=== PATIENT | male | born 1990 | race Caucasian/White ===

== ENCOUNTER 2021-12-06 19:54 | Emergency (ER) | payer OTHER, SELFPAY ==
--- NOTE | ~2021-12-06 | XR_ITS ---
XR forearm LT 2V DATE: 12/06/2021 20:27 INDICATION: TECHNIQUE: 2 views COMPARISON: None FINDINGS: There is a comminuted fracture of the proximal radial shaft. There is almost complete ante rior displacement No dislocation at the elbow or wrist. IMPRESSION: Comminuted fracture of the proximal radial shaft Reviewed, dictated and finalized at location A.
[2021-12-06 19:56] VITALS: BP 123/77; PULSE 104; RESP 18; TEMP 36.9; O2SAT 98
--- NOTE | 2021-12-06 20:11 | ED.UPPEXIN ---
HPI - Extremity Injury (Upper) General Chief Complaint: Extremity Injury, Upper Stated Complaint: fall with left arm injury Time Seen by Provider: 12/06/21 19:58 History of Present Illness HPI narrative: 31-year-old male presents emergency room secondary injury to his left forearm. States he was playing kickball and he was running to first base when he tripped. He tried to catch himself on outstretched left arm. States he heard and felt a pop to the upper third of his left forearm. Been having swelling and pain in that area ever since. Did not hit his head and had no loss of consciousness. Denies any neck, chest, back, or lower extremity pain. This happened just prior to presentation to emergency room. Had a sling that he put the arm in an ice to her prior to arrival. Related Data Home Medications Medication Instructions Recorded Confirmed No Home Medications 12/06/21 Allergies Allergy/AdvReac Type Severity Reaction Status Date / Time avocado Allergy Unknown Diarrhea Verified 12/06/21 20:24 Review of Systems Review of Systems: CONSTITUTIONAL: Denies fever, chills, or sweats. EYES: Denies visual changes, redness, or discharge. ENT: Denies rhinorrhea, congestion, sore throat, or otalgia. CARDIOVASCULAR: Denies chest pain, palpitations, or edema. RESPIRATORY: Denies cough or dyspnea. GASTROINTESTINAL: Denies abdominal pain, nausea, vomiting, or diarrhea. GENITOURINARY: Denies dysuria or hematuria. SKIN: Denies rash or itching. MUSCULOSKELETAL: Pain to the left forearm. No pain to the left shoulder. No pain to the lower extremity. NEUROLOGIC: Denies headache, numbness, or weakness. PSYCHIATRIC: Denies anxiety or depression. [facility] Past Medical History Medical History No pertinent past medical history Family History Family History Mother Patient's mother is in good health Father Patient's father is in good health Sibling Patient's sister is in good health Patient's brother is in good health Social History Social History Smoking status: Current some day smoker Tobacco type: e-cigarettes/vaping Alcohol intake: current Exam Narrative: APPEARANCE: Well appearing, no pain or distress, well-nourished. Head normocephalic and atraumatic. EYES: PERRLA/EOMI, conjunctivae very clear. NOSE: Normal with no drainage EARS:TMS clear Radha Christine, with good light reflex. THROAT: Pharynx clear, no exudate. NECK: Supple. No adenopathy, no masses. RESPIRATORY: Airway patent, respirations nonlabored. Clear to auscultation bilaterally, no rales, rhonchi, wheezing. CARDIOVASCULAR: Regular rate and rhythm without murmurs, rubs, or gallops. ABDOMINAL: Soft, nontender, nondistended, no hepatosplenomegaly Musculoskeletal: Swelling and tenderness noted to the proximal third of the left forearm. No pain to the left elbow or wrist. Able to move all of his digits with full range of motion. Sensation is intact to all of his fingers. No tenderness to the left shoulder. Has a small abrasion to the left knee but no bony tenderness. NEURO: Alert. Cranial nerves II through XII intact. Normal gait. Good coordination. Nonfocal examination. SKIN:: Warm, dry. Normal Color PSYCHIATRIC: Normal affect/mood, normal interaction Course Course Emergency Course: Patient has a comminuted displaced fracture to the proximal aspect of the left radius. I sent pictures of this to our orthopedic surgeon on-call Dr. Blair who recommended this be splinted and transferred to [place] to one of the trauma orthopedic surgeons. His concern is that this is still close to the neurovascular components that this needs specialized care. Discussed this with the patient and his they prefer to be transferred to [facility]. Put out a phone call to the transfer center at [phone] and waiti
[2021-12-06] MEDS: HYDROcodone/acetaminophen (*CRX) 5-325 MG TABLET 1 TAB PO (20:23)
[2021-12-06] MEDS: KETOROLAC (*BKC) 60 MG/2 ML VIAL IM (20:23)
--- NOTE | 2021-12-06 21:02 | PC.NURSE ---
PT REFUSES EMS TRANSPORT TO [facility] ED. WILL DRIVE HIM.
[2021-12-06 21:22] VITALS: BP 140/83; PULSE 99; RESP 18; O2SAT 96
== END 2021-12-06 21:25 | disposition short-term general hospital (02) ==
PROVIDERS: Emergency Provider Emergency Medicine
DX: S52.352A Displaced comminuted fracture of shaft of radius, left arm, initial encounter for closed fracture (principal); F17.290 Nicotine dependence, other tobacco product, uncomplicated; W01.0XXA Fall on same level from slipping, tripping and stumbling without subsequent striking against object, initial encounter; Y93.6A Activity, physical games generally associated with school recess, summer camp and children
CPT/HCPCS: 29125; 73090; 96372; 99284; A4565; A9270; J1885

== ENCOUNTER 2022-06-17 16:16 | Emergency (ER) | payer OTHER, SELFPAY ==
[2022-06-17 16:27] VITALS: BP 122/72; PULSE 113; RESP 16; TEMP 38.9; O2SAT 99
--- NOTE | 2022-06-17 17:24 | ED.URI ---
HPI - URI/Sore Throat General Chief Complaint: Upper Respiratory Infection Stated Complaint: sore throat Time Seen by Provider: 06/17/22 17:24 History of Present Illness HPI Narrative: 32-year-old female presented for complaint of sore throat and fatigue, onset today. Endorses fever. He has not taken anything for symptoms. Denies sick contacts. Denies shortness of breath, sinus congestion, cough, nausea, vomiting, diarrhea. Related Data Allergies Allergy/AdvReac Type Severity Reaction Status Date / Time avocado Allergy Unknown Diarrhea Verified 06/17/22 17:20 Review of Systems Review of Systems: ROS per HPI [facility] Past Medical History Medical History No pertinent past medical history Family History Family History Mother Patient's mother is in good health Father Patient's father is in good health Sibling Patient's sister is in good health Patient's brother is in good health Social History Social History Smoking status: Current some day smoker Tobacco type: e-cigarettes/vaping Alcohol intake: current Exam Narrative: GENERAL: Ill-appearing, no acute distress. EYES: conjunctivae clear ENT: Mucous membranes moist. TMs pearly claudio with normal light reflex bilaterally; no tragal tenderness. Oropharynx erythematous without exudate. No drooling, no hoarseness, no trismus, uvula midline. No tripod positioning, hot potato voice, or soft palate swelling. NECK: Supple. No lymphadenopathy CHEST: Clear to auscultation, breath sounds equal. HEART: Regular rate and rhythm. No murmur heard. SKIN: Warm, dry, no rash. NEURO: Alert and oriented x3. Course Course Emergency Course: Patient is aware of diagnosis, understands and agrees to treatment plan. Anticipatory guidance given. Patient agrees to follow-up as directed and is aware of reasons to seek care at the emergency department. Portions of this record may have been created with voice recognition software Level of Care: Express Care Visit Vital Signs Vital signs: Vital Signs Temperature 102.0 F H 06/17/22 16:27 Pulse Rate 113 H 06/17/22 16:27 Respiratory Rate 16 06/17/22 16:27 Blood Pressure 122/72 06/17/22 16:27 Pulse Oximetry 99 06/17/22 16:27 Oxygen Delivery Room Air 06/17/22 16:27 Temperature 102 F H 06/17/22 17:37 Pulse Rate 113 H 06/17/22 16:27 Respiratory Rate 16 06/17/22 16:27 Blood Pressure 122/72 06/17/22 16:27 Pulse Oximetry 99 06/17/22 16:27 Oxygen Delivery Room Air 06/17/22 16:27 MDM - URI/Sore Throat MDM Narrative Medical decision making narrative: strep result reviewed with pt. Advise supportive treatments. Patient is appropriate for outpatient treatment and follow-up. Differential Diagnosis Differential diagnosis: Likely upper respiratory infection, viral infection and pharyngitis Discharge Plan Discharge Clinical Impression: Strep pharyngitis Patient Disposition: Home, Self-Care Condition: Stable Instructions: Antibiotic Form, Strep Throat (ED) Additional Instructions: - Take the antibiotic as directed. Fever and sore throat typically resolve within one to three days. Most patients can return to work after 12 to 24 hours of antibiotic therapy, provided you are fever free and otherwise well. -Eat and drink things that are easy to swallow, like soft foods, cool liquids, tea with honey, or popsicles . -Salt water gargles and/or may use topical anesthetic ( Chloraseptic spray) or lozenges to relieve dryness or throat pain -Alternate Tylenol and ibuprofen as needed for pain and fever as directed. -Frequent hand washing or hand computer instructor is one of the best ways to prevent spread of infection. Throw away the toothbrush after 24hours of antibiotic. -Follow up with primary care provider in 2-3 days if
[2022-06-17 17:37] VITALS: TEMP 38.8
[2022-06-17] MEDS: ACETAMINOPHEN 500 MG TABLET 1000 MG PO (17:37)
[2022-06-17 18:12] VITALS: TEMP 38.3
== END 2022-06-17 18:12 | disposition home or self-care (01) ==
PROVIDERS: Emergency Provider Nurse Practitioner Family
DX: J02.0 Streptococcal pharyngitis (principal); F17.290 Nicotine dependence, other tobacco product, uncomplicated
CPT/HCPCS: 87880; 99213; A9270; G0463

== ENCOUNTER 2025-02-21 00:58 | Day surgery (SDC) | payer BC, SELFPAY ==
[2025-02-09 11:29] VITALS: BMI 29.5
--- OUTSIDE RECORDS SUMMARY | 2025-02-21 01:01 | XMS_ITS | Clinical Summary ---
Author Organization [facility] Address [address] [place] [address] Care Team Providers Care Signal Person Name Role Phone Melissa Waters MD Primary Care Provider [phone] Source Comments [facility],non-owned Affiliates and Associated Physician Practices is amultiple site organization consisting of ambulatory clinics and hospital sitesin [place], [place], [place] and [place]. This disclosure is being madepursuant to the Care Everywhere program and may not contain all information available regarding this patient. Last updated 18.[facility] Allergies No known active allergies Medications * This document contains information received from the source organization and may not represent a complete record from that organization. * Be aware that medications may not be up to date on this document. Alwaysverify current medications with the patient. cyclobenzaprine (FLEXERIL) 5 MG tablet Take 1 (one) tablet by mouth 3 times daily as needed (Muscle spasms) 30 tablet 12/20/2021 Active docusate sodium (COLACE) 100 MG capsule Take 1 (one) capsule by mouth once daily 20 capsule 12/20/2021 Active oxyCODONE, immediate release, (Roxicodone) 5 MG tablet Take 1 (one) tablet by mouth every 4 hours as needed for Pain 35 tablet 01/24/2022 Active Active Problems Problem Noted Date Diagnosed Date Closed displaced fracture of head of left radius 12/07/2021 Social History Tobacco Use Types Packs/Day Years Used Date Smoking Tobacco: Former Cigarettes Q uit: 2017 Smokeless Tobacco: Never Alcohol Use Standard Drinks/Week Comments Yes 28 (1 standard drink = 0.6 oz pure alcohol) 3-4 shots almost every night, vodka AUDIT-C Answer Date Recorded Q1: How often do you have a drink containing alcohol? 4 or more times a week 12/20/2021 Q2: How many drinks containi ng alcohol do you have on a typical day when you are drinking? 3 or 4 Q3: How often do you have si x or more drinks on one occasion? 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 Gender Identity Not on file Sexual Orientation Not on file Last Filed Vital Signs Vital Sign Reading Time Taken Comments Blood Pressure 125/88 12/20/2021 1:15 PM CDT Pulse 71 12/20/2021 1:45 PM CDT Temperature 36.7 C (98 F) 12/20/2021 10:25 AM CDT Respiratory Rate 13 12/20/2021 1:45 PM CDT Oxygen Saturation 98% 12/20/2021 1:45 PM CDT Inhaled Oxygen Concentration 21% 12/20/2021 1 1:20 AM CDT Weight 94.8 kg (209 lb) 01/15/2022 12:43 PM CDT Height 175.3 cm (5' 9) 01/15/2022 12:43 PM CDT Body Mass Index 30.86 01/15/2022 12:43 PM CDT Plan of Treatment Health Maintenance Due Date Last Done Comments HIV SCREENING 01/29/2003 HEPATITIS C SCREENING 01/25/2006 DTAP/TDAP/TD VACCINES (1 - Tdap) 01/29/2007 HEPATITIS B VACCINE (1 of 3 - 19+ 3-dose series) 01/29/2007 HPV VACCINE (1 - 3-dose SCDM series) 01/29/2015 COVID-19 VACCINE (2 - 2023-2 5 season) 2024 01/04/2021 DEPRESSION SCREENING 06/22/2024 INFLUENZA VACCINE (#1) 2025 07/13/2012 ZOSTER VACCINE (1 of 2) 01/29/2038 HIB VACCINE Aged Out No longer eligi ble based on patient's age to complete this topic MENINGOCOCCAL (Group B) VACC INE SHARED DECISION-MAKING Aged Out No longer eligibl e based on patient's age to complete this topic MENINGOCOCCAL GROUPS A/C/Y/W VACCINE Aged Out No longer eligible b ased on patient's age to complete this topic PNEUMOCOCCAL VACCINE Aged Out No long er eligible based on patient's age to complete this topic Medical Devices Implanted Type Area Chief Resource Officer Device Identifier Shelf Expiration Date Model / Serial / Lot Graft Bone Ntr Ac Cnxs Dbm 1ml Ptty Syr - [id number] Implanted:Qty: 1 on 12/20/2021 by Romeo Dias MD at [facility] Left: Arm [employer] 05/19/2022 [id number] / [id number] / [id number] Screw 2.7mm 4.5mm 15mm T7 Slfret Scrdrvr Implanted:Qty: 4 on 12/20/2021 by Romeo Dias MD at [facility] Left: Arm [employer] [id number] / / Screw 2.7mm 4.5mm 16mm T8 Slf-Tap Cortx Implanted:Qty: 2 on 12/20/2021 by Romeo Dias MD at [facility] Left: Arm [employer] [id number] / / Screw 3.5mm 14mm Slf-Tap Cortx Evos Strl Implanted:Qty: 1 on 12/20/2021 by Romeo Dias MD at [facility] Left: Arm [employer] [id number] / / Screw 3.5mm 15mm Slf-Tap Cortx Evos Strl Implanted:Qty: 1 on 12/20/2021 by Romeo Dias MD at [facility] Left: Arm [employer] [id number] / / Screw 3.5mm 16mm Slf-Tap Cortx Evos Strl Implanted:Qty: 1 on 12/20/2021 by Romeo Dias MD at [facility] Left: Arm [employer] [id number] / / Left Radial Plate Implanted:Qty: 1 on 12/20/2021 by Romeo Dias MD at [facility] Left: Arm [employer] [id number] / / Screw 2mm 3mm 14mm T6 Slf-Tap Drv Sm Implanted:Qty: 1 on 12/20/2021 by Romeo Dias MD at [facility] Left: Arm [employer] [id number] / / Evos 2.0mm X 12mm Implanted:Qty: 1 on 12/20/2021 by Romeo Dias MD at [facility] Left: Arm [id number] / / Insurance [facility] Member Subscriber Plan / Payer (Ef fective 2021-Present) Name:Manjarrez Brett W Relation to Subscriber:Self Name:MANJARREZ,BRETT Radha Payer ID:[id number] (NAIC) Type:HMO Address: [place] [phone] Care Teams Signal Person Relationship Specialty Start Date End Date Melissa Waters MD [address] [place] [address] [address] [place] [phone] [facility] - General 12/11/21
--- OUTSIDE RECORDS SUMMARY | 2025-02-21 01:01 | XMS_ITS | Encounter Summary ---
Author Organization [facility] Address [address] [place] [address] Care Team Providers Care Comb Fixer Name Role Phone Melissa Waters MD Primary Care Provider [phone]- [phone] Reason for Visit * Reason Onset Date Comments MEDICATION REFILL 01/15/2022 Encounter Details Date Type Department Care Team (Late st Contact Info) Description 01/15/2022 Refill [facility] - Orthopedics [address] [place] [address], [facility] [place] [address] Romeo Dias MD [address] [place] [address] [place] [address] MEDICATION REFILL Social History Tobacco Use Types Packs/Day Years [...] on file 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
[2025-02-21 12:21] VITALS: BP 140/82; PULSE 72; RESP 18; TEMP 36.6; O2SAT 99
[2025-02-21] MEDS: LACTATED RINGERS 1,000 ML 150 ML IV CONT (12:43)
--- NOTE | 2025-02-21 13:11 | P.PNAN_ITS ---
Anes - Initial Pre Proc Eval Procedure: Operation Date: 02/21/25 13:30 Proposed Procedures p EGD & Diagnostic Colonoscopy - Nimesh Saldivar MD Date/Time: 02/21/25 13:11 Surgeon: Nimesh Saldivar MD Pre Op Diagnosis: Melena, Change in bowel habit Patient Data Age: 35 Gender: M Height: 1.75 m Weight: 93 kg Last Vital Signs Temp 97.9 F 02/21/25 12:21 Pulse 72 02/21/25 12:21 Resp 18 02/21/25 12:21 BP 140/82 02/21/25 12:21 Pulse Ox 99 02/21/25 12:21 O2 Del Method Room Air 02/21/25 12:21 Allergies Allergy/AdvReac Type Severity Reaction Status Date / Time avocado AdvReac Unknown Flushing Verified 02/21/25 12:20 Home Medications ?Medication ?Instructions ?Recorded ?Confirmed ?Type hydroxyzine HCl 25 mg tablet 25 mg PO TID PRN panic at tack #30 02/07/25 02/21/25 Rx tabs Patient hx anesthesia problems: none Family hx anesthesia problems: none Results Review: All pre-operative results and documents have been reviewed as part of the pre- operative evaluation. [facility] Past Medical History Medical History (Updated 12/08/24 @ 16:06 by Eli Lim APRN) Left forearm fracture s/p ORIF around 2022 No pertinent past medical history Family History Family History Mother Patient's mother is in good health Father Patient's father is in good health Sibling Patient's sister is in good health Patient's brother is in good health Social History Social History (Updated 12/08/24 @ 16:01 by Eli Lim APRN) Social History: using nicotine pouches Smoking packs per day: 1 Smoking cigarettes per day: 20.0 Years smoked: 10 Smoking pack-years: 10.00 Smoking status: Former smoker Tobacco type: cigarettes Smokeless tobacco user: other Alcohol intake: current Drinks per week: 10 Living arrangements: with family Occupation/Education: occupation 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 Informed Consent: The patient's anesthetic plan and its attendant risks and benefits were discussed with the patient/family/POA. Questions were solicited and answers provided to the satisfaction of the patient/family/POA.
--- NOTE | 2025-02-21 13:55 | PM.HPGS ---
History of Present Illness History of Present Illness Consent: Risks, benefits, and alternatives have been discussed and questions answered. Patient agrees to proceed with procedure. Chief complaint: Melena, Change in bowel habit Narrative: Brett King is a 35 year old male with bloating and episode of blood in stool, never had scopes Review of Systems Review of Systems: All systems reviewed & are unremarkable except as noted in HPI and below PMFSH Past Medical History Medical History (Updated 12/08/24 @ 16:06 by Eli Lim APRN) Left forearm fracture s/p ORIF around 2022 No pertinent past medical history Family History Family History Mother Patient's mother is in good health Father Patient's father is in good health Sibling Patient's sister is in good health Patient's brother is in good health Social History Social History (Updated 12/08/24 @ 16:01 by Eli Lim APRN) Social History: using nicotine pouches Smoking packs per day: 1 Smoking cigarettes per day: 20.0 Years smoked: 10 Smoking pack-years: 10.00 Smoking status: Former smoker Tobacco type: cigarettes Smokeless tobacco user: other Alcohol intake: current Drinks per week: 10 Living arrangements: with family Occupation/Education: occupation 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 Gender identity (if verbalized by the patient): Male Spiritual care concerns: No Meds Home Medications and Allergies Home Medications ?Medication ?Instructions ?Recorded ?Confirmed ?Type hydroxyzine HCl 25 mg tablet 25 mg PO TID PRN panic attack #30 02/07/25 02/21/25 Rx tabs Allergies Allergy/AdvReac Type Severity Reaction Status Date / Time avocado AdvReac Unknown Flushing Verified 02/21/25 12:20 Vital Signs Vital Signs - 24 hr 02/21/25 12:21 Temperature 97.9 F Pulse Rate 72 Respiratory Rate 18 Blood Pressure 140/82 Pulse Oximetry 99 Oxygen Delivery Room Air Exam Const: General: comfortable and no acute distress HENMT: Face/Nose/Sinus: Normal nares present Eyes: General: appearance normal, both eyes and all related structures Neck: Neck: no JVD Resp: Auscultation: clear to auscultation bilaterally Cardio: Rate: regular rate Rhythm: regular rhythm GI: Inspection: non-distended GI Palp: Yes Soft to palpation Skin: General skin exam: normal color Neuro: General: gait normal Speech: normal speech Extrem: General: normal to inspection Psych: Mental Status: mental status grossly normal Assessment and Plan Assessment and plan (1) Bloating: Code(s): R14.0 - Abdominal distension (gaseous) Status: Acute Assessment and Plan: egd (2) Bloody stools: Code(s): K92.1 - Melena Status: Acute Assessment and Plan: colonoscopy
--- NOTE | 2025-02-21 14:12 | SUR.OPER ---
EGD ended at 1408, colon began at 1412.
--- NOTE | 2025-02-21 14:24 | S_PTH ---
PATIENT: Brett King LOC: [facility] Gunderson#:[id number] AGE/SX: 35/M ROOM: RE02/21/[address]: Nimesh Saldivar MD : 1990 BED: DIS: 02/21/2025 SPEC #: [id number] RECD: 02/22/25 07:51 STATUS: THIEN RENesha #: [id number] FABIO: 02/21/25 14:[address]: Nimesh Saldivar DEPT: [facility] Surgical RECD BY: Erica Haynes ENTERED: 02/22/25 07:52 SP TYPE: Surgical OTHR DR: Eli Lim, MICHOACANO Tissues: A - Small Bowel Bx B - Gastric Biopsy C - Colon Polypectomy D - Colon Polypectomy Procedures: Hematoxylin and Eosin Stain Gross and Microscopic Level 4
[2025-02-21 14:28] VITALS: BP 116/79; PULSE 94; RESP 20; O2SAT 98
[2025-02-21 14:38] VITALS: BP 119/78; PULSE 74; RESP 19; O2SAT 100
[2025-02-21 14:48] VITALS: BP 128/97; PULSE 75; RESP 19; O2SAT 92
== END 2025-02-21 15:12 | disposition home or self-care (01) ==
PROVIDERS: PCP Nurse Practitioner Family; Referring Provider Nurse Practitioner Family; Visit Provider Internal Medicine Gastroenterology
PROC: 0DJ08ZZ Inspection of Upper Intestinal Tract, Via Natural or Artificial Opening Endoscopic (ICD-10-PCS; CPT 45378; principal; 2025-02-21 13:30)
DX: D12.4 Benign neoplasm of descending colon (principal); D12.5 Benign neoplasm of sigmoid colon; K21.00 Gastro-esophageal reflux disease with esophagitis, without bleeding; F17.290 Nicotine dependence, other tobacco product, uncomplicated; E66.9 Obesity, unspecified; Z68.30 Body mass index [BMI] 30.0-30.9, adult; Z98.890 Other specified postprocedural states
CPT/HCPCS: 43239; 45385; 88305; J2003; J2704; J7120